=== PATIENT | female | born 1990 | race Two or more races ===

== ENCOUNTER → 2019-04-01 14:50 | Outpatient (CLI) | payer OTHER | END | disposition home or self-care (01) | LOC: LAB 14:50 | DX: Z00.00 Encounter for general adult medical examination without abnormal findings (principal) ==

== ENCOUNTER → 2019-04-01 | Outpatient (CLI) | payer OTHER | END | disposition home or self-care (01) | LOC: RAD 14:24 | DX: R05 Cough (principal) ==